=== PATIENT | female | born 1935 | race Hispanic/Latino ===

== ENCOUNTER 2016-06-04 21:19 | Inpatient (IN) | payer MEDICARE ==
[2016-06-04] MEDS ORDERED: Morphine 4 mg/ml ISec IVP STA (21:36)
[2016-06-04] MEDS ORDERED: Sodium Chloride 0.9% 500 ML IV STA (21:36)
--- NOTE | 2016-06-04 21:39 | ED PDOC ---
Arrival/HPI - General Chief Complaint: Abdominal Pain Time Seen by Provider: 06/04/16 21:25 Historian: Other (power of captain waiter/waitress) - History of Present Illness Narrative History of Present Illness (Text): 06/04/16 21:28 80 year old female, whose past medical history includes dementia, presents to the emergency department complaining of RLQ abdominal pain. Patient's power of captain waiter/waitress states patient has a decrease in urinary output. Patient denies any other complaints at this time. Dr. Jaimes Symptom Onset: Gradual Symptom Course: Unchanged Quality: Other (pain) Activities at Onset: Rest Modifying Factors (Text): none Context: Home Associated Symptoms (Text): urinary output decrease Past Medical History - Provider Review Nursing Documentation Reviewed: Yes - Infectious Disease Hx of Infectious Diseases: None - Neurological Hx Dementia: Yes - Psychiatric Hx Substance Use: No - Surgical History Hx Appendectomy: Yes - Anesthesia Hx Anesthesia: Yes Hx Anesthesia Reactions: No Hx Malignant Hyperthermia: No Family/Social History - Physician Review Nursing Documentation Reviewed: Yes Family/Social History: No Known Family HX Smoking Status: Never Smoked Hx Alcohol Use: No Hx Substance Use: No Allergies/Home Meds Allergies/Adverse Reactions: Allergies aspirin Allergy (Verified 06/04/16 21:25) ITCHING Review of Systems - Physician Review All systems were reviewed & negative as marked: Yes Physical Exam - Physical Exam Narrative Physical Exam (Text): 06/04/16 21:40 - Review of Systems Patient has dementia and is acting appropriately. - Physical exam - Systems Exam Head: Present: Atraumatic, Normocephalic Pupils: Present: PERRL Extraocular Muscles: Present: EOMI Conjunctiva: Present: Normal Mouth: Present: Moist Mucous Membranes Neck: Present: Normal Range of Motion. No: MIDLINE TENDERNESS, Paraspinal Tenderness Respiratory/Chest: Present: Clear to Auscultation, Good Air Exchange. No: Respiratory Distress, Accessory Muscle Use, Tachypneic Cardiovascular: Present: Regular Rate and Rhythm, Normal S1, S2, Peripheral Pulses Present. No: Murmurs Abdomen: Present: Non-reducible hernia RLQ (4-5 cm bulging) No: Tenderness, Peritoneal Signs, Rebound, Guarding, Distention Back: Present: Normal Inspection. No: Midline Tenderness, Paraspinal Tenderness Upper Extremity: Present: Normal Inspection. No: Cyanosis, Edema Lower Extremity: Present: Normal Inspection. No: Edema Neurological: Present: GCS=15, Speech Normal, cranial nerves II through XII fully intact with no cerebellar abnormality, neuro-sensory fully intact. No focal neurological deficits. Skin: Present: Warm, Dry, Normal Color. No: Rashes Lymphatic: Present: OX3, NI, NC Psychiatric: Present: Alert No: agitated Vital Signs Reviewed: Yes Vital Signs Temp Pulse Resp BP Pulse Ox 06/05/16 01:20 64 16 134/53 L 97 06/04/16 21:32 98.4 F 82 18 156/71 H 98 Temperature: Afebrile Blood Pressure: Hypertensive Pulse: Regular Respiratory Rate: Normal Appearance: Positive for: Well-Appearing, Non-Toxic, Comfortable Mental Status: Positive for: Alert and Oriented X 3 Medical Decision Making ED Course and Treatment: 06/04/16 21:46 Impression: 80 year old female with dementia complains of RLQ abdominal pain. On physical exam, patient has non reducible hernia in RLQ, 4-5 cm bulging; rest of abdomen was soft nontender. Differential Diagnosis included but are not limited to: incarcerated hernia vs. strangulated hernia vs. dehydration Plan: CT abd/pelvis w/o po Urinalysis Labs Morphine, IV fluids 06/05/16 00:51 VRAD Impression Right inguinal hernia containing a stool filled loop of bowel. Additionally, there are ill-defined, smaller caliber loops abutting and extending slightly into the hernia with indistinct machado and haziness in the surrounding fat suggesting inflammation. The lack of intravenous contrast prevents definition of the wall as well as limits evaluation for wall thickness and hyperemia. The lack of oral contrast limits the ability to delineate the course of the bowel in this region as well as to determine any obstructed bowel which would not fill with contrast. Given the location of the thickened indistinct loops, inflammation of the distal ileum or appendix would be possibilities. Further evaluation could be performed with contrast if clinically indicated. Large amount of rectal stool. Cholelithiasis. Other non acute findings described in the body of the report. Dictated and Authenticated by: Kala Beltrán MD abx will be ordered Dr. Jaimes being paged 06/05/16 00:[address] Jaimes, agrees with admission to his service and asked for Dr. Vergara consult. assistant to the president paged pt's POA aware of plan pt currently in no distress and denies abd pain 06/05/16 01:05 Case discussed with surgical corsetier Dr. Abraham. States will come and evaluate patient. - Lab Interpretations Lab Results: 06/04/16 22:05 06/04/16 22:05 Lab Results 06/04/16 23:24: Urine Color Yellow, Urine Appearance Sl cloudy, Urine pH 7.5, Ur Specific Only 1.015, Urine Protein 30 H, Urine Glucose (UA) Negative, Urine Ketones Negative, Urine Blood Moderate H, Urine Nitrate Negative, Urine Bilirubin Negative, Urine Urobilinogen 1.0 H, Ur Leukocyte Esterase Small H, Urine RBC 2 - 5, Urine WBC 2 - 5, Ur Epithelial Cells 4 - 5, Amorphous Sediment Moderate, Urine Bacteria Small 06/04/16 22:05: WBC 4.9, RBC 4.10, Hgb 13.5, Hct 39.3, MCV 95.9, MCH 32.9, MCHC 34.4, RDW 12.8, Plt Count 136, MPV 9.4, Gran % 65.2, Lymph % (Auto) 24.7, Sawyer % (Auto) 7.7 H, Eos % (Auto) 2.2, Baso % (Auto) 0.2, Gran # 3.21, Lymph # 1.2, Sawyer # 0.4, Eos # 0.1, Baso # 0.01, PT 12.0 H, INR 1.11 H, APTT 24.7, Sodium 142 , Potassium 5.0, Chloride 105, Carbon Dioxide 29, Anion Gap 13, BUN 13, Creatinine 0.7, Est GFR ( Amer) > 60, Est GFR (Non-Af Amer) > 60, Random Glucose 87, Calcium 9.3, Total Bilirubin 1.6 H, AST 27, ALT 28, Alkaline Phosphatase 41, Total Protein 7.3, Albumin 4.1, Globulin 3.2, Albumin/Globulin Ratio 1.3, Lipase 156 I have reviewed the lab results: Yes - RAD Interpretation Radiology Orders: 06/04/16 21:34 ABD & PELVIS W/O PO OR IV CONT [CT] Stat High Rigger: ED Physician - Medication Orders Current Medication Orders: Acetaminophen (Tylenol 325mg Tab) 650 mg PO Q6H PRN PRN Reason: Pain, Mild (1-3) Docusate Sodium (Colace) 100 mg PO TID AMALIA Sodium Chloride (Sodium Chloride 0.9%) 1,000 mls @ 60 mls/hr IV .[id number] AMALIA Last Admin: 06/05/16 01:23 Dose: 60 MLS/HR eMAR Start Stop Document 06/05/16 01:23 EKEOO (Rec: 06/05/16 01:23 [id number]) Intravenous Solution Start Date 06/05/16 Start Time 01:23 Ondansetron HCl (Zofran Inj) 4 mg IVP Q4H PRN PRN Reason: Nausea/Vomiting Polyethylene Glycol (Miralax) 17 gm PO DAILY AMALIA Discontinued Medications Diphenhydramine HCl (Benadryl) 25 mg IVP STAT STA Stop: 06/04/16 22:36 Last Admin: 06/04/16 23:15 Dose: Not Given Non-Admin Reason: Patient Refused IVP Administration Document 06/04/16 23:15 EKE (Rec: 06/04/16 23:15 [id number]) Charges for Administration # of IVP Administrations 1 Sodium Chloride (Sodium Chloride 0.9%) 500 mls @ 1,000 mls/hr IV .Q30M STA Stop: 06/04/16 22:05 Last Admin: 06/04/16 22:26 Dose: 1,000 MLS/HR eMAR Start Stop Document 06/04/16 22:26 EKEOO (Rec: 06/04/16 22:26 [id number]) Intravenous Solution Start Date 06/04/16 Start Time 22:26 Piperacillin Sod/Tazobactam Sod (Zosyn 4.5 Gm In Ns 100ml) 100 mls @ 200 mls/ hr IVPB STAT STA PRN Reason: Protocol Stop: 06/05/16 01:20 Last Admin: 06/05/16 01:22 Dose: 200 MLS/HR eMAR Start Stop Document 06/05/16 01:22 EKEOO (Rec: 06/05/16 01:23 [id number]) Intravenous Solution Start Date 06/05/16 Start Time 01:23 Morphine Sulfate (Morphine) 4 mg IVP STAT STA Stop: 06/04/16 21:37 Last Admin: 06/04/16 22:26 Dose: 4 MG MAR Pain Assessment Document 06/04/16 22:26 EKEOO (Rec: 06/04/16 22:26 EKEOO [id number]) Pain Reassessment Is this a pain reassessment? No Sleep Is patient sleeping during reassessment? No Presence of Pain Presence of Pain Yes IVP Administration Document 06/04/16 22:26 EKEOO (Rec: 06/04/16 22:26 EKEOO [id number]) Charges for Administration # of IVP Administrations 1 - Scribe Statement The provider has reviewed the documentation as recorded by the Scribe Liliana Urena All medical record entries made by the Scribe were at my direction and personally dictated by me. I have reviewed the chart and agree that the record accurately reflects my personal performance of the history, physical exam, medical decision making, and the department course for this patient. I have also personally directed, reviewed, and agree with the discharge instructions and disposition. Disposition/Present on Arrival - Present on Arrival Any Indicators Present on Arrival: No History of DVT/PE: No History of Uncontrolled Diabetes: No Urinary Catheter: No History of Decub. Ulcer: No History Surgical Site Infection Following: None - Disposition Have Diagnosis and Disposition been Completed?: Yes Diagnosis: Hernia Disposition: HOSPITALIZED Disposition Time: 00:58 Patient Plan: Admission Patient Problems: Current Active Problems Problem Status Diagnosed Hernia Acute Condition: FAIR
[2016-06-04 22:15] LABS: ADD MANUAL DIFF? NO
[2016-06-04 22:23] LABS: BASO # 0.01 K/mm3 (0.0-2.0); BASO % 0.2 % (0.0-3.0); EOS # 0.1 (0.0-0.7); EOS % 2.2 % (1.5-5.0); GRAN # 3.21 (1.4-6.5); GRAN % 65.2 % (50.0-68.0); HEMATOCRIT 39.3 % (36.0-48.0); LYMPH # 1.2 (1.2-3.4); LYMPH % 24.7 % (22.0-35.0); MEAN CELL VOLUME 95.9 fL (80.0-105.0); MEAN CORPUSCULAR HEMOGLOBIN 32.9 pg (25.0-35.0); MEAN CORPUSCULAR HGB CONC 34.4 g/dl (31.0-37.0); MEAN PLATELET VOLUME 9.4 fl (7.0-11.0); MONO # 0.4 (0.1-0.6); MONO % 7.7 % (1.0-6.0); PLATELET COUNT 136 10^3/uL (120.0-450.0); RED CELL DISTRIBUTION WIDTH 12.8 % (11.5-14.5); WHITE BLOOD COUNT 4.9 10^3/ul (4.5-11.0)
[2016-06-04 22:31] LABS: INR 1.11 (0.93-1.08); PARTIAL THROMBOPLASTIN TIME 24.7 Seconds (23.7-30.8)
[2016-06-04] MEDS ORDERED: DiphenhydrAMINE 50 mg/ml Inj IVP STA (22:35)
[2016-06-04 22:37] LABS: ALB/GLOB RATIO 1.3 (1.1-1.8); ALKALINE PHOSPHATASE 41 U/L (38-133); ALT/SGPT 28 U/L (7-56); AST/SGOT 27 U/L (15-39); BILIRUBIN,TOTAL 1.6 mg/dL (0.2-1.3); BLOOD UREA NITROGEN 13 mg/dL (7-21); CALCIUM 9.3 mg/dL (8.4-10.5); CARBON DIOXIDE 29 mmol/L (21-33); CHLORIDE 105 mmol/L (98-107); GFR AFRICAN-AMERICAN > 60; GLUCOSE,RANDOM 87 mg/dL (70-110); LIPASE 156 U/L (23-300); SODIUM 142 mmol/L (132-148); TOTAL PROTEIN 7.3 g/dL (5.8-8.3)
[2016-06-05 00:05] LABS: PH,URINE 7.5 (4.7-8.0); URINE BILIRUBIN NEGATIVE (NEGATIVE); URINE BLOOD MODERATE (NEGATIVE); URINE GLUCOSE (UA) NEGATIVE (NEGATIVE); URINE KETONE NEGATIVE (NEGATIVE); URINE LEUKOCYTE ESTERASE SMALL Leu/uL (NEGATIVE); URINE PROTEIN 30 mg/dL (<30 mg/dL)
[2016-06-05 00:08] LABS: URINE APPEARANCE SL CLOUDY (CLEAR); URINE COLOR YELLOW (YELLOW)
[2016-06-05 00:29] LABS: URINE AMORPHOUS SEDIMENT MODERATE; URINE BACTERIA SMALL (NEG)
--- NOTE | 2016-06-05 00:38 | CT ---
EXAM: CT Abdomen and Pelvis Without Intravenous Contrast CLINICAL HISTORY: 80 years old, female; Pain; Abdominal pain; Additional info: Hernia, rlq TECHNIQUE: Axial computed tomography images of the abdomen and pelvis without intravenous contrast. This CT exam was performed using one or more of the following dose reduction techniques: automated exposure control, adjustment of the mA and/or kV according to patient size, and/or use of iterative reconstruction technique. Coronal and sagittal reformatted images were created and reviewed. EXAM DATE/TIME: 06/04/2016 9:34 PM COMPARISON: No relevant prior studies available. FINDINGS: The ascending aorta measures 3.7 cm in diameter. No periaortic fluid. Numerous gallstones are present. No pericholecystic inflammation identified. Left hepatic calcifications possibly vascular in etiology. Atherosclerotic calcification seen elsewhere. The spleen is slightly prominent. There are varices in the upper abdomen. Probable bilateral parapelvic cysts in combination with dilation of the collecting systems. No hydroureter. No obstructing calculi. Moderate amount of stool throughout the colon. Large amount stool in the rectum the amount of which is concerning for impending impaction. There is a right inguinal hernia. The hernia contains a stool filled loop probable proximal right colon. There is also a smaller caliber loop extending slightly into the hernia on coronal images 31 through 32 and axial images 145 through 147. There is complete lack of intraluminal air and the machado appear thickened and indistinct suggesting inflammation. This could represent an inflamed distal ileal loop although an inflamed appendix would also be possible. The ileocecal valve/ terminal ileum are seen on axial images 135 through 140 and coronal image 26 through 31. A small amount of fluid is also present within the hernia. IMPRESSION: Right inguinal hernia containing a stool filled loop of bowel. Additionally, there are ill-defined, smaller caliber loops abutting and extending slightly into the hernia with indistinct machado and haziness in the surrounding fat suggesting inflammation. The lack of intravenous contrast prevents definition of the wall as well as limits evaluation for wall thickness and hyperemia. The lack of oral contrast limits the ability to delineate the course of the bowel in this region as well as to determine any obstructed bowel which would not fill with contrast. Given the location of the thickened indistinct loops, inflammation of the distal ileum or appendix would be possibilities. Further evaluation could be performed with contrast if clinically indicated. Large amount of rectal stool. Cholelithiasis. Other non acute findings described in the body of the report.
[2016-06-05] MEDS ORDERED: Piperacill/Tazo 4.5gm in NS 100 ML IVPB STA (00:51)
[2016-06-05] MEDS: Sodium Chloride 0.9% 1,000 ML IV SCH (01:23)
--- NOTE | 2016-06-05 03:07 | CP.PCM.CON ---
History of Present Illness - History of Present Illness History of Present Illness: Surgery: Dr. Vergara CC: ABD pain HPI: 80F w. pmh of dementia presents to ED w. abd pain localized to the RLQ. Hx was gathered from PT and POA who is at bedside. Pt states that abd pain began this afternoon and is localized to the RLQ. She has had this pain intermittently over the last yr and its attributed to a R inguinal hernia. She states that she was at [facility] about 3 weeks ago for similar pain. She states that the pain is accompanied by nausea, no vomiting. She does have a decreased appetite. She reports having constipation for which she takes miralax. Her last BM was this morning, smaller than usual. She denies BLOCK/blurred vision, no CP/ palpitations, no SOB/cough, no hematuria/dysuria, she does have decreased urine output. PMH: Dementia PSH: appendectomy Meds: MAR reviewed ALL: ASA Social: No ETOH/tobacco/drugs Fhx: Non-contributory Review of Systems - Review of Systems All systems: reviewed and no additional remarkable complaints except (HPI) Past Patient History - Infectious Disease Hx of Infectious Diseases: None - Past Social History Smoking Status: Never Smoked - CARDIAC Hx Cardiac Disorders: No - PULMONARY Hx Respiratory Disorders: No - NEUROLOGICAL Hx Neurological Disorder: Yes Hx Dementia: Yes - HEENT Hx Deafness: Yes ([place]) - RENAL Hx Chronic Kidney Disease: No - ENDOCRINE/METABOLIC Hx Endocrine Disorders: No - HEMATOLOGICAL/ONCOLOGICAL Hx Blood Disorders: No - INTEGUMENTARY Hx Dermatological Problems: No - MUSCULOSKELETAL/RHEUMATOLOGICAL Hx Fractures: Yes (right great toe and 5th toe) - GASTROINTESTINAL Hx Gastrointestinal Disorders: No - GENITOURINARY/GYNECOLOGICAL Hx Genitourinary Disorders: No - PSYCHIATRIC Hx Psychophysiologic Disorder: No - SURGICAL HISTORY Hx Surgeries: Yes Hx Appendectomy: Yes - ANESTHESIA Hx Anesthesia: Yes Hx Anesthesia Reactions: No Hx Malignant Hyperthermia: No Meds Allergies/Adverse Reactions: Allergies Allergy/AdvReac Type Severity Reaction Status Date / Time aspirin Allergy ITCHING Verified 06/04/16 21:25 - Medications Medications: Current Medications Sodium Chloride (Sodium Chloride 0.9%) 1,000 mls @ 60 mls/hr IV .[id number] AMALIA Last Admin: 06/05/16 01:23 Dose: 60 mls/hr Physical Exam - Constitutional Appears: Non-toxic, No Acute Distress - Head Exam Head Exam: ATRAUMATIC, NORMOCEPHALIC - Eye Exam Eye Exam: EOMI. absent: Scleral icterus - ENT Exam ENT Exam: Mucous Membranes Moist, Normal External Ear Exam - Neck Exam Neck exam: Positive for: Full Rom - Respiratory Exam Respiratory Exam: NORMAL BREATHING PATTERN. absent: Accessory Muscle Use, Respiratory Distress - GI/Abdominal Exam GI & Abdominal Exam: Hernia (R inguinal, reducible, mildly tender), Soft. absent: Distended, Firm, Guarding, Rigid - Rectal Exam Rectal Exam: Fecal Impaction. absent: Bloody Stool, Hemorrhoids - Extremities Exam Extremities exam: Negative for: calf tenderness, pedal edema - Neurological Exam Neurological exam: Alert, Altered - Psychiatric Exam Psychiatric exam: Normal Affect, Normal Mood - Skin Skin Exam: Dry, Normal Color, Warm Results - Vital Signs Recent Vital Signs: Last Vital Signs Temp 98.4 F 06/04/16 21:32 Pulse 64 06/05/16 01:20 Resp 16 06/05/16 01:20 BP 134/53 L 06/05/16 01:20 Pulse Ox 97 06/05/16 01:20 - Labs Result Diagrams: 06/04/16 22:05 06/04/16 22:05 - Imaging and Cardiology CT scan - abdomen Status: Image reviewed by me, Report reviewed by me Assessment & Plan - Assessment and Plan (Free Text) Assessment: 80F w. reducible R inguinal hernia and constipation -CLD -IVF -Zofran -colace, miralax -GI/DVT prophylaxis -will d/w attending Zemaitis PGY2
[2016-06-05 03:41] VITALS: BMI 22.0
[2016-06-05] MEDS: POLYETHYLENE GLYCOL 3350 17 GM/Dose PACKET PO SCH (09:30)
[2016-06-05] MEDS: cefTRIAXone 1 gm 100 ML IVPB SCH (10:14)
--- NOTE | 2016-06-05 10:17 | HP ---
HISTORY OF PRESENT ILLNESS: An 80-year-old white female, severely hard of hearing, with a history of a right inguinal hernia which has been enlarging and causing pain over the last 24-48 hours with no nausea, vomiting, but severe pain. The patient came to the ER complaining of severe pain and was fou nd to have a nonreducible right inguinal hernia with multiple loops of bowel. CT showed inflammation , possible early obstruction, incarceration. The patient was afebrile. Vital signs were stable. Sh mónica did not complain of any change in her bowels or nausea, vomiting, but did complain of severe abdomi nal pain. No shortness of breath, no palpitations, no chest pain and no headache, nausea, vomiting. 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 The p atient will be evaluated by psych and also by surgery. PHYSICAL EXAMINATION: GENERAL: Shows a short, thin white female in no apparent distress this morning. HEENT: Within normal limits. HEART: Regular sinus rhythm. No ____ murmurs. CHEST: Clear to auscultation and percussion. ABDOMEN: Nondistended. There is a large palpable right inguinal hernia. Bowel sounds are hypoactiv e. There is no tenderness on palpation. There are no masses palpable. Hernia is somewhat reducible . EXTREMITIES: Without cyanosis, clubbing or edema. NEUROLOGIC: Grossly intact. PSYCHOLOGICAL: It is deferred to psychiatry at this point. Cristo Jaimes MD cc: [id number] TT: 06/05/2016 10:17:04 tn
[2016-06-05] MEDS: metroNIDAZOLE IV 500 mg/100 ml 100 ML IVPB SCH ×2 (14:11→21:46)
--- NOTE | 2016-06-05 16:54 | CON ---
DATE: 06/05/2016 PSYCHIATRIC CONSULTATION HISTORY OF PRESENT ILLNESS: The patient is an 80-year-old female. I reviewed the chart. I spoke at length with the patient. I also spoke at length 2 of her close friends. Apparently, the patient was admitted to the hospital due to a painful inguinal hernia; however, the patient has had a radical change in her personality and mental status in recent days and weeks. She has been imagining that she has been hearing people at the window of her bedroom at night. The patient has also been noted to be at times having episodes of screaming and yelling and inappropriate euphoric demeanor. Two weeks ago she was at the [facility], but she was released. Apparently, she was prescribed Risperdal by her primary care physician. According to the friends, it made her very drowsy all day. The patient has also been having declining impairment of her memory. PAST HISTORY: The patient denies any history of psychiatric treatments or she claims she has never before taken any psychotropic medication. The patient has other past history of appendectomy. No history of substance, alcohol abuse, or tobacco use. The patient has been, according to medical record chart, has been diagnosed recently with dementia. CURRENT LABORATORY DATA: Of note, she had an abdominal and pelvic CT scan, which revealed a right inguinal hernia containing a stool-filled loop of bowel, distally ill-defined small caliber loops abutting, extending slightly into the hernia. The patient's other current laboratory data: White count is 4900; hemoglobin is 13.5; platelet count 136,000. Her metabolic profile is all within normal range except for a total bilirubin of 1.6. All other hepatic enzymes, BUN, creatinine, electrolytes are all within normal range. The patient had a urinalysis with 30 mg/dL of protein. She had a moderate amount of blood in her urine, a small amount of urinary leukocyte esterase. CURRENT MEDICATIONS: Include Flagyl IVPB. She is receiving Rocephin. She is receiving p.r.n. Zofran. She had a stat dose of Benadryl yesterday and 4 mg of morphine yesterday, and dose of Zosyn late last night. PERSONAL HISTORY: She lives alone. 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 The patient lives with a close friend. I spoke at length to her close friend and the friend with whom she lives. The patient states she is one of 13 siblings. All others are . REVIEW OF SYSTEMS: She had lower right quadrant abdominal pains, severe, earlier; less so now. She has other 12 point review of systems noncontributory. PHYSICAL EXAMINATION: VITAL SIGNS: Current blood pressure 123/69, pulse 68, respirations 18 per minute, O2 saturation 96% on room air. NEUROLOGIC: She has no obvious focal neurological findings. PSYCHIATRIC: Mental status: She is awake, hyper, alert. She is somewhat hard of hearing, but answers all questions. She is oriented x 3, but she hesitates in terms of thinking of the date. Her speech is very pressured. She is highly euphoric; inappropriately so. She was not quite sure whether she was at home, however, or in the hospital. The patient's recent memory appears generally good. There are some instances of impairment of her recent memory. The patient admits to having auditory hallucinations and delusions. The patient denies depression or suicidal ideation. Her judgment seems somewhat impaired. CURRENT IMPRESSION: The patient has mild dementia, type not quite clear at this point, with psychotic symptomatology, including auditory hallucinations, delusional thinking, and manic-like demeanor. She also has an incarcerated inguinal hernia with bowel loops and status post pain. PLAN: I would ideally like to have more history regarding her past psychiatric history. Not available at this time. The patient needs to be on a major tranquilizer. Due to the fact that Risperdal made her quite oversedated, I will start her tonight on 2.5 mg of Abilify at bedtime. I will leave an order for p.r.n. Geodon 10 mg IM q. 6 h., but she has not had any episodes of agitation while she was here. I will reevaluate the patient. Also, if the patient has not had a neurological workup, including CT scanning, B12, folate, thyroid function studies, vitamin D levels, then this should be done. Samson Cross MD cc: [id number] TT: 06/05/2016 16:54:08 Confirmation # [id number] Dictation # [id number] chris PALMA
[2016-06-06] MEDS: metroNIDAZOLE IV 500 mg/100 ml 100 ML IVPB SCH ×3 (06:35→22:59)
[2016-06-06] MEDS: cefTRIAXone 1 gm 100 ML IVPB SCH (09:43)
[2016-06-06] MEDS: POLYETHYLENE GLYCOL 3350 17 GM/Dose PACKET PO SCH (09:49)
[2016-06-06] MEDS: Sodium Chloride 0.9% 1,000 ML IV SCH (11:00)
--- NOTE | 2016-06-06 11:05 | PN ---
DATE: 06/06/2016 An 80-year-old white female admitted to the hospital with partially incarcerated right inguinal large hernia, and also with change in mental status, confusion, disorientation, possible psychosis, status post seen by Dr. Vergara for possible surgery for repair of her hernia, and also seen by Dr. Cross who started her on Abilify and Geodon p.r.n. The patient is agitated, confused, disruptive this morning, talking to God, refusing some of her medi cations. Family is at the bedside. The patient will be evaluated for possible surgery and then poss ibly [facility]. The patient also is unable to be cared for at home anymore. She does not have family. She has frien ds. PHYSICAL EXAMINATION: GENERAL: Shows a well-developed, but thin white female in an agitated, combative state. ABDOMEN: Unremarkable. There is decreased size of the right inguinal hernia. Bowel sounds are norm oactive. EXTREMITIES: Without cyanosis, clubbing, or edema. CHEST: Clear to auscultation. HEART: Regular sinus rhythm. Cristo Jaimes MD cc: [id number] TT: 06/06/2016 11:05:34 Confirmation # [id number] Dictation # [id number]
--- NOTE | 2016-06-06 14:23 | CP.PCM.PN ---
Subjective - Date & Time of Evaluation Date of Evaluation: 06/06/16 Time of Evaluation: 12:00 - Subjective Subjective: General Surgery progress note for Dr. Vergara Pt s/e at bedside this AM. Patient is not very conversant, only answering yes or no to a few questions, but she denies any pain, nausea, or vomiting. Objective - Vital Signs/Intake and Output Vital Signs (last 24 hours): Temp Pulse Resp BP Pulse Ox 97.9 F 66 18 131/71 97 06/06/16 08:21 06/06/16 08:21 06/06/16 08:21 06/06/16 08:21 06/06/16 08:21 Intake and Output: 06/06/16 06/06/16 06:59 18:59 Intake Total 800 Balance 800 - Medications Medications: Current Medications Acetaminophen (Tylenol 325mg Tab) 650 mg PO Q6H PRN PRN Reason: Pain, Mild (1-3) Aripiprazole (Abilify) 2.5 mg PO HS [facility] Last Admin: 06/05/16 21:46 Dose: 2.5 mg Docusate Sodium (Colace) 100 mg PO TID [facility] Last Admin: 06/06/16 13:50 Dose: Not Given Sodium Chloride (Sodium Chloride 0.9%) 1,000 mls @ 60 mls/hr IV .[id number] [facility] Last Admin: 06/05/16 01:23 Dose: 60 mls/hr Ceftriaxone Sodium (Rocephin 1 Gram Ivpb) 100 mls @ 100 mls/hr IVPB DAILY [facility] PRN Reason: Protocol Last Admin: 06/06/16 09:43 Dose: 100 mls/hr Metronidazole (Flagyl) 100 mls @ 100 mls/hr IVPB Q8 [facility] PRN Reason: Protocol Last Admin: 06/06/16 13:50 Dose: Not Given Ondansetron HCl (Zofran Inj) 4 mg IVP Q4H PRN PRN Reason: Nausea/Vomiting Polyethylene Glycol (Miralax) 17 gm PO DAILY [facility] Last Admin: 06/06/16 09:49 Dose: Not Given Ziprasidone (Geodon Inj) 10 mg IM Q6H PRN PRN Reason: Agitation Last Admin: 06/06/16 10:45 Dose: 10 mg - Labs Labs: PT 12.0 Seconds (9.9-11.8) H 06/04/16 22:05 INR 1.11 (0.93-1.08) H 06/04/16 22:05 APTT 24.7 Seconds (23.7-30.8) 06/04/16 22:05 - Constitutional Appears: Well, Non-toxic, No Acute Distress - Head Exam Head Exam: ATRAUMATIC, NORMOCEPHALIC - Eye Exam Eye Exam: Normal appearance. absent: Conjunctival injection, Scleral icterus - ENT Exam ENT Exam: Mucous Membranes Moist, Normal Oropharynx - Respiratory Exam Respiratory Exam: NORMAL BREATHING PATTERN. absent: Accessory Muscle Use, Respiratory Distress - Cardiovascular Exam Cardiovascular Exam: RRR - GI/Abdominal Exam GI & Abdominal Exam: Distended (mild distention), Soft, Tenderness (mild tenderness in the LLQ), Hernia (reduced right inguinal hernia non-tender) - Extremities Exam Extremities Exam: absent: Calf Tenderness, Pedal Edema, Tenderness - Neurological Exam Neurological Exam: Alert, Awake. absent: Oriented x3 - Psychiatric Exam Psychiatric exam: Flat Affect. absent: Agitated - Skin Skin Exam: Dry, Intact, Normal Color, Warm Assessment and Plan - Assessment and Plan (Free Text) Assessment: 80F w/reducible R inguinal hernia and constipation Abdomen non-acute Plan -soft diet -IVF -Zofran -colace, miralax -GI/DVT prophylaxis -power of senior attorney and foot and ankle surgeon, Amisha, would like to proceed with Right inguinal hernia repair Discussed with Dr. Vergara, Stephanie Peralta, PGY1
[2016-06-07] MEDS: metroNIDAZOLE IV 500 mg/100 ml 100 ML IVPB SCH ×3 (05:29→22:35)
[2016-06-07] MEDS ORDERED: Lidocaine 1% Inj (20ml) ONE (07:36)
[2016-06-07] MEDS ORDERED: Bupivacaine 0.5% Inj(30mL) ONE ×2 (07:36→08:37)
[2016-06-07] MEDS ORDERED: cefTRIAXone (Rocephin) 1 gm Inj ONE (07:40)
[2016-06-07 07:42] LABS: ADD MANUAL DIFF? NO
[2016-06-07 07:47] LABS: BASO # 0.01 K/mm3 (0.0-2.0); BASO % 0.3 % (0.0-3.0); EOS # 0.1 (0.0-0.7); EOS % 2.8 % (1.5-5.0); GRAN # 2.32 (1.4-6.5); GRAN % 58.8 % (50.0-68.0); HEMATOCRIT 36.9 % (36.0-48.0); LYMPH # 1.2 (1.2-3.4); MEAN CELL VOLUME 94.1 fL (80.0-105.0); MEAN CORPUSCULAR HEMOGLOBIN 32.1 pg (25.0-35.0); MEAN CORPUSCULAR HGB CONC 34.1 g/dl (31.0-37.0); MEAN PLATELET VOLUME 9.6 fl (7.0-11.0); MONO # 0.3 (0.1-0.6); MONO % 7.1 % (1.0-6.0); PLATELET COUNT 114 10^3/uL (120.0-450.0); RED CELL DISTRIBUTION WIDTH 12.7 % (11.5-14.5); WHITE BLOOD COUNT 3.9 10^3/ul (4.5-11.0)
[2016-06-07 08:03] LABS: ALB/GLOB RATIO 1.2 (1.1-1.8); ALKALINE PHOSPHATASE 37 U/L (38-133); ALT/SGPT 29 U/L (7-56); AST/SGOT 18 U/L (15-39); BILIRUBIN,TOTAL 1.4 mg/dL (0.2-1.3); BLOOD UREA NITROGEN 9 mg/dL (7-21); CALCIUM 8.5 mg/dL (8.4-10.5); CARBON DIOXIDE 24 mmol/L (21-33); CHLORIDE 107 mmol/L (95-110); GFR AFRICAN-AMERICAN > 60; GLUCOSE,RANDOM 81 mg/dL (70-110); POTASSIUM 3.7 mmol/L (3.6-5.0); SODIUM 139 mmol/L (132-148)
[2016-06-07] MEDS ORDERED: Propofol 10 mg/ml Inj (20 ML) ONE (08:43)
[2016-06-07] MEDS ORDERED: ePHEDrine 50 mg/ml Inj ONE (08:44)
[2016-06-07] MEDS ORDERED: Lidocaine 2% Inj (20ml) ONE (08:53)
[2016-06-07] MEDS ORDERED: Succinylcholine 200 mg/10 ml Inj IV ONE (08:53)
[2016-06-07] MEDS ORDERED: Phenylephrine 10 mg/ml Inj ONE (08:53)
--- NOTE | 2016-06-07 09:35 | PN ---
DATE: 06/07/2016 An 80-year-old white female admitted to the hospital with partial incarcerated right inguinal hernia and change in mental status with confusion, disorientation and psychosis and audio and visual halluci nations. The patient was seen in consultation by Dr. Cross. She is somewhat more calm on Abilify a nd Geodon. She was also seen by Dr. Vergara and will have an elective repair for inguinal hernia, wh ich has had near incarceration on several times over the last year. PHYSICAL EXAMINATION: Unchanged. REVIEW OF SYSTEMS: A 12-point is unremarkable. PLAN: For surgery and possible psychiatric intervention postop. Cristo Jaimes MD cc: [id number] TT: 06/07/2016 09:34:19 Confirmation # [id number] Dictation # [id number] en
[2016-06-07] MEDS ORDERED: Neostigmine Methylsulfate 3mg/3ml Syringe IV ONE (09:39)
--- NOTE | 2016-06-07 10:06 | PCM.SURG1 ---
Surgeon's Initial Post Op Note - Surgeon's Notes Surgeon: Jai Vending Supervisor: Teo PGY2, Cristian PGY1 Type of Anesthesia: General Endo, Local Pre-Operative Diagnosis: Right inguinal hernia Operative Findings: Direct right inguinal hernia Post-Operative Diagnosis: same Operation Performed: Repair of direct inguinal hernia w. plug and patch Specimen/Specimens Removed: none Estimated Blood Loss: EBL {In ML}: 10 Blood Products Given: N/A Drains Used: No Drains Post-Op Condition: Good Date of Surgery/Procedure: 06/07/16 Time of Surgery/Procedure: 10:05
[2016-06-07] MEDS ORDERED: HYDROmorphone 0.5 mg/0.5 ml ISec IVP PRN (10:12)
[2016-06-07] MEDS ORDERED: Lactated Ringer's 1,000 ML IV SCH (10:15)
--- NOTE | 2016-06-07 10:31 | RAD ---
HISTORY: pre-op COMPARISON: No prior. FINDINGS: LUNGS: No active pulmonary disease. PLEURA: No significant pleural effusion identified, no pneumothorax apparent. CARDIOVASCULAR: Normal. Mild aortic tortuosity OSSEOUS STRUCTURES: No significant abnormalities. VISUALIZED UPPER ABDOMEN: Normal. OTHER FINDINGS: None. IMPRESSION: No active disease.
[2016-06-07] MEDS: POLYETHYLENE GLYCOL 3350 17 GM/Dose PACKET PO SCH (11:33)
--- NOTE | 2016-06-07 12:34 | CARD ---
APPROVED REPORT EKG Measurement Heart [id number] <Conclusion> Normal sinus rhythm Poor Progression of R V1-V3.
--- NOTE | 2016-06-07 13:31 | OP ---
PROCEDURE DATE: 06/07/2016 PREOPERATIVE DIAGNOSIS: Right inguinal hernia. POSTOPERATIVE DIAGNOSIS: Right inguinal hernia. OPERATION PERFORMED: Right inguinal herniorrhaphy. In the operating room, patient was identified by her name, number, procedure, laterality. SURGEON: Dr. Vergara ENGINE ASSEMBLER: and . The reema on the right inguinal area was identified and the palpable defect was tentatively found. Af ter the successful timeout where the patient was identified by name, number, procedure, laterality, m y reema, the consent was made by the power of claims attorney . The area was prepped and draped and a r ight inguinal incision was made, starting from pubic tubercle going north. This was taken down using cautery to the external oblique that was cleaned on its outer surface. The laminectomy retrac tor was applied. The external oblique was identified, divided in the direction of its fibers and imm ediately obviously was a hernia sac. The hernia sac was bluntly dissected, sharp and cautery dissect ed down to the ring that was easily identified. The hernia sac was prolapsed in and a large patch wa s placed. It was sutured circumferentially with Prolene. The defect was closed and this was covered with a patch. It was sutured by pubic tubercle and superiorly. The external oblique was closed ove r it with Vicryl. Subcutaneous tissue was closed with Vicryl. The incision was closed with lance. A light pressure dressing was applied after the wound was injected with 30 mL of 0.5 Marcaine. The patient was taken to recovery room in good condition after sponge and needle counts declared correct . Koko Vergara MD cc: [id number] TT: 06/07/2016 13:31:00 en
--- NOTE | 2016-06-07 13:48 | PN ---
DATE: 06/07/2016 The patient is an 80-year-old female. Today, she had surgery for repair of right inguinal hernia. The patient has been followed by myself psychiatrically for psychotic symptomatology. She h as had restlessness, agitation, visual hallucinations, tangential thinking, inappropriate euphoria, r estlessness, trouble sleeping off and on during the night with confusion. I have spoken to nursing staff are on multiple occasions. The patient has been imagining seeing peop le through the window. The patient has been refusing some medications. She has been noted to be int ermittently screaming and yelling. The patient had IM Geodon p.r.n. Today, her mental status reveal s that she is awake, she is hyper-alert. She knows she has had surgery. Her thinking is confabulato ry at times, tangential at other times. She is very hyper-euphoric and restless, changeable moods, b ut she is, at the present time, compliant with nursing care. CURRENT MEDICATIONS: Include Abilify 5 mg at bedtime, p.r.n. Dilaudid, Flagyl IV, p.r.n. Geodon. The patient is receiving MiraLax, Rocephin IV. She has an order for p.r.n. Ultram. The patient's judgment and insight are all impaired. Today, I spoke with the patient's close friend with whom she lives, explained ongoing treatment from psychiatric point of view. LABORATORY DATA: White count is 3900. Hemoglobin is 12.6. Her metabolic profile today is normal ex cept for a bilirubin of 1.4. VITAL SIGNS: Blood pressure 147/67, pulse 64, respirations 18 per minute, and afebrile. IMPRESSION: She has mild dementia with some degree of delirium. She also has psychotic symptomatolo gy including thought disorder, visual hallucinations, auditory hallucinations, and history of recent paranoia. She is status post inguinal hernia repair today. PLAN: I will increase Abilify for today to 10 mg p.o. at bedtime, and we will continue to monitor cl osely her mental status. Samson Cross MD cc: [id number] TT: 06/07/2016 12:37:05 Confirmation # [id number] Dictation # [id number] jn
[2016-06-08] MEDS: Sodium Chloride 0.9% 1,000 ML IV SCH ×2 (02:44→23:46)
[2016-06-08 03:41] LABS: HEMATOCRIT 35.2 % (36.0-48.0); MEAN CELL VOLUME 93.4 fL (80.0-105.0); MEAN CORPUSCULAR HEMOGLOBIN 32.9 pg (25.0-35.0); MEAN CORPUSCULAR HGB CONC 35.2 g/dl (31.0-37.0); MEAN PLATELET VOLUME 9.1 fl (7.0-11.0); RED CELL DISTRIBUTION WIDTH 12.6 % (11.5-14.5); WHITE BLOOD COUNT 7.3 10^3/ul (4.5-11.0)
[2016-06-08 03:52] LABS: ALB/GLOB RATIO 1.1 (1.1-1.8); ALKALINE PHOSPHATASE 35 U/L (38-133); ALT/SGPT 34 U/L (7-56); AST/SGOT 19 U/L (15-39); BILIRUBIN,TOTAL 1.5 mg/dL (0.2-1.3); BLOOD UREA NITROGEN 11 mg/dL (7-21); CALCIUM 8.6 mg/dL (8.4-10.5); CARBON DIOXIDE 23 mmol/L (21-33); CHLORIDE 103 mmol/L (98-107); GFR AFRICAN-AMERICAN > 60; GLUCOSE,RANDOM 104 mg/dL (70-110); POTASSIUM 3.6 mmol/L (3.6-5.0); SODIUM 136 mmol/L (132-148)
[2016-06-08 06:53] LABS: TROPONIN I < 0.01 ng/mL
[2016-06-08] MEDS: POLYETHYLENE GLYCOL 3350 17 GM/Dose PACKET PO SCH (11:12)
[2016-06-08] MEDS: cefTRIAXone 1 gm 100 ML IVPB SCH ×2 (11:12→11:18)
--- NOTE | 2016-06-08 11:15 | PN ---
DATE: 06/08/2016 Seen on the floor. She is still very confused, but had some pain both the chest and the groin. The groin itself is dry. She refused to eat very much this morning, but will try again later. Koko Vergara MD cc: [id number] TT: 06/08/2016 11:14:50 Confirmation # [id number] Dictation # [id number] dn
--- NOTE | 2016-06-08 11:16 | CARD ---
APPROVED REPORT EKG Measurement Heart [id number] [place] 168P56 [id number] <Conclusion> Normal sinus rhythm Normal ECG
--- NOTE | 2016-06-08 11:45 | PN ---
DATE: 06/08/2016 The patient is an 80-year-old female. I reviewed the chart, spoke with the nurse caring for patient, reviewed nurse's notes from last night. Last night, the patient was very restless, paranoid at times , confabulatory thinking, disoriented intermittently. She received no p.r.n. medication to calm down her restlessness. Today, her mental status reveals that she is awake, slightly confused, slightly d isoriented, tearful at times. The patient is aware she had surgery. Admits her right lower quadrant pain is feeling better. Spoke to a close friend at bedside. CURRENT MEDICATIONS: Include p.r.n. Zofran, MiraLax, Rocephin and Flagyl. She has an order for p.r. n. Geodon which has not been given, an order for p.r.n. Ultram received 1 dose yesterday. The patien t receives Abilify 10 mg p.o. at bedtime. LABORATORY DATA: Her white count 7300, hemoglobin 12.4. The patient's metabolic profile is all with in normal range except for a total bilirubin of 1.5. VITAL SIGNS: Blood pressure 116/62, pulse 61, respirations 16 per minute, afebrile. O2 saturation 9 8% on room air. IMPRESSION: Delirium, postop inguinal hernia repair, intermittent visual hallucinations, paranoia, t hought disorder. PLAN: The patient is on IV antibiotics. Continue Abilify 10 mg at bedtime for psychotic symptomatol ogy with 0.5 mg of Ativan at bedtime. I spoke to nurse practitioner and advised that she have staff give p.r.n. Geodon as ordered if she has hallucinating or if she is restless and confused and agitate d. Will continue to monitor her mental status. Samson Cross MD cc: [id number] TT: 06/08/2016 11:45:09 Confirmation # [id number] Dictation # [id number] angel
--- NOTE | 2016-06-08 16:32 | PN ---
DATE: 06/08/2016 SUBJECTIVE: An 80-year-old white female with dementia and psychosis and right inguinal hernia, large . The patient had a hernia repair. She is doing better with Geodon and Abilify for her psychosis an d emotional outbreaks. She is more sedate. PHYSICAL EXAMINATION: VITAL SIGNS: Stable. ABDOMEN: Soft. Bowel sounds are hypoactive, but present. EXTREMITIES: Without cyanosis, clubbing or edema. NEUROLOGIC: Grossly intact. IMPRESSION: Right large inguinal hernia with intermittent obstruction, dementia and psychosis. Cristo Jaimes MD cc: [id number] TT: 06/08/2016 16:31:55 Confirmation # [id number] Dictation # [id number] angel
[2016-06-08] MEDS: metroNIDAZOLE IV 500 mg/100 ml 100 ML IVPB SCH ×2 (18:40→21:25)
[2016-06-08] MEDS ORDERED: Alum-Mag Hydrox-Simethicone Susp (30 mL) PO ONE (20:55)
[2016-06-09] MEDS: metroNIDAZOLE IV 500 mg/100 ml 100 ML IVPB SCH ×3 (05:38→22:58)
[2016-06-09 07:17] LABS: HEMATOCRIT 34.9 % (36.0-48.0); MEAN CELL VOLUME 94.6 fL (80.0-105.0); MEAN CORPUSCULAR HEMOGLOBIN 32.5 pg (25.0-35.0); MEAN CORPUSCULAR HGB CONC 34.4 g/dl (31.0-37.0); MEAN PLATELET VOLUME 9.4 fl (7.0-11.0); RED CELL DISTRIBUTION WIDTH 12.9 % (11.5-14.5); WHITE BLOOD COUNT 5.9 10^3/ul (4.5-11.0)
[2016-06-09 07:33] LABS: ALB/GLOB RATIO 1.1 (1.1-1.8); ALKALINE PHOSPHATASE 35 U/L (38-133); ALT/SGPT 31 U/L (7-56); AST/SGOT 27 U/L (15-39); BILIRUBIN,TOTAL 0.9 mg/dL (0.2-1.3); BLOOD UREA NITROGEN 7 mg/dL (7-21); CARBON DIOXIDE 25 mmol/L (21-33); CHLORIDE 105 mmol/L (95-110); GFR AFRICAN-AMERICAN > 60; GLUCOSE,RANDOM 82 mg/dL (70-110); POTASSIUM 3.4 mmol/L (3.6-5.0); SODIUM 137 mmol/L (132-148); TOTAL PROTEIN 5.4 g/dL (5.8-8.3)
[2016-06-09] MEDS: cefTRIAXone 1 gm 100 ML IVPB SCH (09:33)
[2016-06-09] MEDS: POLYETHYLENE GLYCOL 3350 17 GM/Dose PACKET PO SCH (09:33)
[2016-06-09] MEDS ORDERED: Potassium Chloride 20 mEq ER Tab PO ONE (09:58)
--- NOTE | 2016-06-09 10:34 | PN ---
DATE: 06/09/2016 An 80-year-old white female admitted to the hospital with dementia and change in mental status, confu karina, disorientation, but also a right lower quadrant partially incarcerated hernia. The patient had hernia repair by Dr. Vergara and did well. She is more calm and sedate on Abilify and Geodon. Bethany l signs are stable. She is complaining of some mild tingling at the incision site. She will be ambu lated and possibly evaluated for TCU. PHYSICAL EXAMINATION: Unchanged. ABDOMEN: Soft. There is some slight tenderness in the right lower quadrant. Bowel sounds are normo active. CHEST: Clear to auscultation and percussion. Cristo Jaimes MD cc: [id number] TT: 06/09/2016 10:33:50 Confirmation # [id number] Dictation # [id number] en
--- NOTE | 2016-06-09 12:01 | CP.PCM.PN ---
Subjective - Date & Time of Evaluation Date of Evaluation: 06/09/16 Time of Evaluation: 07:00 - Subjective Subjective: SURGERY PROGRESS NOTE FOR DR. LUJAN 80F seen and examined at bedside. Patient somewhat confused. Patient has had a bowel movement. Minimal pain in area of operation. Objective - Vital Signs/Intake and Output Vital Signs (last 24 hours): Temp Pulse Resp BP Pulse Ox 98.8 F 74 20 124/72 97 06/09/16 08:21 06/09/16 08:21 06/09/16 08:21 06/09/16 08:21 06/09/16 08:21 Intake and Output: 06/09/16 06/09/16 06:59 18:59 Intake Total 1050 Balance 1050 - Medications Medications: Current Medications Acetaminophen (Tylenol 325mg Tab) 650 mg PO Q6H PRN PRN Reason: Pain, Mild (1-3) Last Admin: 06/09/16 09:34 Dose: 650 mg Aripiprazole (Abilify) 10 mg PO HS [facility] Last Admin: 06/08/16 21:24 Dose: 10 mg Docusate Sodium (Colace) 100 mg PO TID [facility] Last Admin: 06/09/16 09:33 Dose: Not Given Sodium Chloride (Sodium Chloride 0.9%) 1,000 mls @ 60 mls/hr IV .[id number] [facility] Last Admin: 06/08/16 23:46 Dose: 60 mls/hr Ceftriaxone Sodium (Rocephin 1 Gram Ivpb) 100 mls @ 100 mls/hr IVPB DAILY [facility] PRN Reason: Protocol Last Admin: 06/09/16 09:33 Dose: 100 mls/hr Metronidazole (Flagyl) 100 mls @ 100 mls/hr IVPB Q8 [facility] PRN Reason: Protocol Last Admin: 06/09/16 05:38 Dose: 100 mls/hr Lorazepam (Ativan) 0.5 mg PO [facility] Last Admin: 06/08/16 21:23 Dose: 0.5 mg Ondansetron HCl (Zofran Inj) 4 mg IVP Q4H PRN PRN Reason: Nausea/Vomiting Last Admin: 06/08/16 20:00 Dose: 4 mg Polyethylene Glycol (Miralax) 17 gm PO DAILY [facility] Last Admin: 06/09/16 09:33 Dose: Not Given Tramadol HCl (Ultram) 50 mg PO Q6 PRN PRN Reason: Pain, moderate (4-7) Last Admin: 06/08/16 19:05 Dose: 50 mg Ziprasidone (Geodon Inj) 10 mg IM Q4 PRN; Protocol PRN Reason: Anxiety - Labs Labs: 06/09/16 06:30 06/09/16 06:30 PT 12.0 Seconds (9.9-11.8) H 06/04/16 22:05 INR 1.11 (0.93-1.08) H 06/04/16 22:05 APTT 24.7 Seconds (23.7-30.8) 06/04/16 22:05 - Constitutional Appears: Non-toxic, No Acute Distress - Head Exam Head Exam: ATRAUMATIC - Respiratory Exam Respiratory Exam: Clear to Ausculation Bilateral, NORMAL BREATHING PATTERN - Cardiovascular Exam Cardiovascular Exam: REGULAR RHYTHM, +S1, +S2 - GI/Abdominal Exam GI & Abdominal Exam: Soft. absent: Distended, Firm, Guarding, Rigid, Tenderness , Rebound Additional comments: incision is clean dry intact. lance in place. - Neurological Exam Neurological Exam: Alert, Awake Assessment and Plan - Assessment and Plan (Free Text) Assessment: 80F s/p inguinal hernia repair POD#2 - pain control - monitor diet - monitor surgical site Further recs discuss with Dr. Jai Larkin, PGY1
--- NOTE | 2016-06-09 17:51 | PN ---
DATE: 06/09/2016 HISTORY OF PRESENT ILLNESS: The patient is an 80-year-old female who was admitted to the hospital wi th incarcerated right inguinal hernia. She has inguinal hernia repair 2 days ago. She has had inter mittent behavioral problems. She has had recent history of hallucinations, paranoia, and restlessnes s. Today, her mental status reveals that she is somewhat calmer, is oriented x 3, aware of her surro undings, less agitated, slightly hard of hearing. She is somewhat excitable at times. She has no ev idence of suicidal ideation. Her recent memory is mildly impaired. The patient is aware of the year and month, not day. CURRENT MEDICATIONS: Include Abilify 10 mg at bedtime, Colace, Rocephin, IV Flagyl, p.r.n. Ultram, A bilify 10 mg at bedtime, Ativan 0.5 mg at bedtime. LABORATORY DATA: CBC is totally normal. Metabolic profiles all normal except for potassium of 3.4, calcium 8.0 and albumin of 2.9. All other parameters within normal range. VITAL SIGNS: Her blood pressure is 124/72, pulse 74, respirations 20 per minute and afebrile. IMPRESSION: The patient is status post inguinal hernia repair. She has a recent schizophreniform ps ychosis, slowly resolving. She has mild cognitive impairment. She has hearing impairment. Her psyc hotic symptoms were all resolved, although she still is quite anxious. PLAN: I feel the patient is capable of cooperating with subacute rehabilitation. We will review psy chotropic medicines, make any changes that are applicable and continue to monitor her mental status. Samson Cross MD cc: [id number] TT: 06/09/2016 17:50:04 Confirmation # [id number] Dictation # [id number] chris
[2016-06-09 19:03] VITALS: PULSE 76
[2016-06-09] MEDS ORDERED: Alum-Mag Hydrox-Simethicone Susp (30 mL) PO ONE (20:51)
[2016-06-10 07:23] LABS: HEMATOCRIT 36.1 % (36.0-48.0); MEAN CELL VOLUME 93.8 fL (80.0-105.0); MEAN CORPUSCULAR HEMOGLOBIN 32.2 pg (25.0-35.0); MEAN CORPUSCULAR HGB CONC 34.3 g/dl (31.0-37.0); MEAN PLATELET VOLUME 9.7 fl (7.0-11.0); RED CELL DISTRIBUTION WIDTH 12.9 % (11.5-14.5); WHITE BLOOD COUNT 4.7 10^3/ul (4.5-11.0)
[2016-06-10 07:50] LABS: ALB/GLOB RATIO 1.1 (1.1-1.8); ALKALINE PHOSPHATASE 35 U/L (38-133); ALT/SGPT 38 U/L (7-56); AST/SGOT 27 U/L (15-39); BLOOD UREA NITROGEN 6 mg/dL (7-21); CALCIUM 8.2 mg/dL (8.4-10.5); CARBON DIOXIDE 26 mmol/L (21-33); CHLORIDE 106 mmol/L (98-107); GFR AFRICAN-AMERICAN > 60; GLUCOSE,RANDOM 79 mg/dL (70-110); POTASSIUM 3.4 mmol/L (3.6-5.0); SODIUM 137 mmol/L (132-148); TOTAL PROTEIN 5.6 g/dL (5.8-8.3)
[2016-06-10 08:07] VITALS: BP 129/70; RESP 19; TEMP 98.7; O2SAT 94
[2016-06-10] MEDS: cefTRIAXone 1 gm 100 ML IVPB SCH (09:17)
[2016-06-10] MEDS: POLYETHYLENE GLYCOL 3350 17 GM/Dose PACKET PO SCH (09:18)
[2016-06-10] MEDS ORDERED: Potassium Chloride 20 mEq ER Tab PO ONE (10:07)
--- NOTE | 2016-06-10 10:12 | CARD ---
APPROVED REPORT EKG Measurement Heart [id number] [place] [id number] <Conclusion> Normal sinus rhythm Normal ECG
--- NOTE | 2016-06-10 13:11 | PN ---
DATE: 06/10/2016 SUBJECTIVE: The patient is an 80-year-old, seen and examined, lying in bed. She is comfortable. Roya sales is anxious to go home. She states she has no pain in her leg or belly. She wants to go home. PHYSICAL EXAMINATION: VITAL SIGNS: She is afebrile, pulse 76, respirations 19, blood pressure 129/70. LUNGS: Bilateral good airflow, no rhonchi or crackle. HEART: S1, S2 audible. ABDOMEN: Soft, nontender, no rebound, no guarding. NEUROLOGIC: She is awake and alert, communicative. LABORATORY EXAMINATION: WBC is 4.7, hemoglobin 12.4, hematocrit 36, platelets 102. Chemistry: Sodi um 137, potassium 3.4, chloride 106, CO2 26, BUN 6, creatinine 0.5, blood sugar 79. ASSESSMENT: 1. Status post incarcerated hernia, status post hernia repair, postop day #3. 2. Dementia. 3. Status post altered mental status. 4. Hypokalemia. 5. Anemia. PLAN: The patient's psych medication is being adjusted. She is on IV metronidazole. She is also ge tting Rocephin. I will request for TCU evaluation. If she is accepted, she can be transferred to [facility] for rehab. Will reevaluate the patient in a.m. Fuad Lopez MD cc: [id number] TT: 06/10/2016 13:10:43 Confirmation # [id number] Dictation # [id number] angel
--- NOTE | 2016-06-10 13:34 | DS ---
ADDENDUM The patient is an 80-year-old who recently had hernia repair done. The patient is clinically stable. Therapy recommended subacute rehab, so arrangement is being made for her discharge today. She will be sent to [facility] for subacute rehab, going to long-term placement, so she will be admit juan antonio under service in [facility]. Fuad Lopez MD cc: [id number] TT: 06/10/2016 13:32:58 en
--- NOTE | 2016-06-10 14:19 | PN ---
DATE: 06/10/2016 HISTORY OF PRESENT ILLNESS: The patient is an 80-year-old female who recently had a repair of incarc erated hernia. She has had a recent history of psychotic symptomatology, including delusional thinki ng, visual hallucinations and elevated mood. Currently, the patient has not had any hallucinations o r agitation in the past 48 hours. Her mental status today reveals that she is awake, hyperalert. Sh e is somewhat euphoric, somewhat pressured speech. She is hard of hearing. She is oriented to place and time. Her recent memory is mildly impaired. Judgment mildly impaired, aware of recent surgery. Denying severe pain. I discussed the case with nurse practitioner. I reviewed local nursing and s ocial work notes and physicians' notes. CURRENT MEDICATIONS: Include Abilify 10 mg at bedtime, lorazepam 0.5 mg at bedtime, Colace, Flagyl, MiraLax, Pepcid, ceftriaxone IV, p.r.n. Ultram. She has no new laboratory data. She has no adverse effects from her psychotropic medication. VITAL SIGNS: Blood pressure is 129/70, pulse 76, afebrile, respirations 19 per minute, O2 saturation 94% on room air. IMPRESSION: Recent acute psychosis, mild cognitive impairment and mild dementia secondary to small v essel cerebrovascular disease. The patient is status post repair of incarcerated inguinal hernia. PLAN: She needs subacute rehab which is appropriate for her. Continue Abilify, continue lorazepam a t bedtime. We will continue to monitor her mental status. Samson Cross MD cc: [id number] TT: 06/10/2016 14:19:15 Confirmation # [id number] Dictation # [id number] tn
[2016-06-10] MEDS: metroNIDAZOLE IV 500 mg/100 ml 100 ML IVPB SCH ×2 (15:47→15:48)
== END 2016-06-10 16:10 | DRG 351 ==
LOC: ED 21:19 → ERH 06-05 00:58 → 3RSO 06-05 02:26
PROVIDERS: ADMIT Internal Medicine; ATTEND Internal Medicine
PROC: 0YU50JZ Supplement Right Inguinal Region with Synthetic Substitute, Open Approach (ICD-10-PCS; principal; 2016-06-07 08:00)
DX: K40.30 Unilateral inguinal hernia, with obstruction, without gangrene, not specified as recurrent (principal); R44.0 Auditory hallucinations; F05 Delirium due to known physiological condition; D64.9 Anemia, unspecified; F03.90 Unspecified dementia, unspecified severity, without behavioral disturbance, psychotic disturbance, mood disturbance, and anxiety; F20.81 Schizophreniform disorder; F22 Delusional disorders; R10.31 Right lower quadrant pain; Z90.49 Acquired absence of other specified parts of digestive tract; Z88.6 Allergy status to analgesic agent; K80.20 Calculus of gallbladder without cholecystitis without obstruction; H91.90 Unspecified hearing loss, unspecified ear; K59.00 Constipation, unspecified; Z87.81 Personal history of (healed) traumatic fracture; R45.1 Restlessness and agitation; F29 Unspecified psychosis not due to a substance or known physiological condition; E87.6 Hypokalemia; G31.84 Mild cognitive impairment of uncertain or unknown etiology; I67.9 Cerebrovascular disease, unspecified; R44.1 Visual hallucinations